=== PATIENT | male | born 1995 ===

== ENCOUNTER 2023-04-18 17:26 | Emergency (ER) | payer SELFPAY ==
[2023-04-18 17:29] VITALS: BP 167/81; PULSE 112; RESP 20; TEMP 36.2; O2SAT 100
--- NOTE | 2023-04-18 19:35 | PC.NURSE ---
Patient comes to desk to state he is leaving. Patient states he feels better. Patient ambulated out of the ED with a steady gait with belongings in hand. Patient left before risks of leaving before being seen by a provider and benefits of staying were given.
== END 2023-04-18 19:44 | disposition left against medical advice (07) ==
DX: R42 Dizziness and giddiness (principal)
CPT/HCPCS: 99199